=== PATIENT | male | born 1985 | race Two or more races ===

== ENCOUNTER 2020-03-23 03:50 | Emergency (ER) | payer MEDICAID, OTHER ==
[~2020-03-23] VITALS: Ht 185.4 cm; Wt 100.9 kg
--- NOTE | 2020-03-23 04:04 | NUR ---
CC OF LEFT SIDE DENTAL PAIN 10/19 FOR 2-3 DAYS. PT DENIES ANY ISSUES WITH SWALLOWING. SPEECH IS CLEAR, RESP EVEN AND UNLABORED.
[2020-03-23 04:32] VITALS: BP 116/69
== END 2020-03-23 04:36 | disposition home or self-care (01) ==
LOC: ED 04:34
DX: K02.9 Dental caries, unspecified (principal); K08.89 Other specified disorders of teeth and supporting structures
CPT/HCPCS: 99283